=== PATIENT | female | born 1955 | race African-American/Black ===

== ENCOUNTER 2018-06-23 08:51 | Outpatient (CLI) | payer OTHER ==
--- NOTE | 2018-06-23 10:37 | MMO ---
BILATERAL SCREENING MAMMOGRAM: Date: 06/23/18 HISTORY: 62-year-old female. Routine screening mammography. COMPARISON: None. Baseline mammogram. TECHNIQUE: CC and MLO views of both breasts are submitted for interpretation. This patient's mammogram was reviewed with the assistance of computer-aided detection. FINDINGS: The breasts are composed of scattered fibroglandular tissue. Bilaterally, no suspicious dominant mass , architectural distortion, or suspicious calcifications. Bilateral benign-appearing calcifications a re identified. IMPRESSION: BIRADS 2: Benign Finding(s) RECOMMENDATION: Annual mammogram. POS: [facility]
== END 2018-06-23 08:52 | disposition home or self-care (01) ==
LOC: SCSMAMMO 08:51
PROVIDERS: ATTEND Nurse Practitioner Family
DX: Z12.31 Encounter for screening mammogram for malignant neoplasm of breast (principal)
CPT/HCPCS: 77067

== ENCOUNTER 2019-06-10 01:26 | Inpatient (IN) | payer SELFPAY ==
[2019-06-10] MEDS ORDERED: Magnesium 2 GM/50 ML BAG (IN WATER) ONE (02:27)
[2019-06-10] MEDS ORDERED: methylPREDNISolone Sod Succ/PF 125 MG/2 ML VIAL ONE (02:27)
[2019-06-10] MEDS ORDERED: Morphine 4 MG/ML VIAL ONE (03:08)
[2019-06-10] MEDS ORDERED: Enoxaparin Sodium 100 MG/ML SYRINGE ONE (03:08)
[2019-06-10] MEDS ORDERED: Enoxaparin Sodium 60 MG/0.6 ML SYRINGE ONE (03:10)
[2019-06-10] MEDS ORDERED: Acetaminophen 325 MG TAB PO PRN (03:16)
[2019-06-10] MEDS ORDERED: Ondansetron PF 4 MG/2 ML Vial IVP PRN (03:16)
[2019-06-10 03:41] LABS: Hemoglobin 12.1 g/dL (12.0-16.0); Mean Corpuscular HGB CONC 33.2 g/dL (32.0-36.0); Mean Corpuscular Volume 90.5 fL (78.0-98.0); Mean Platelet Volume 7.3 fL (7.4-10.4); Platelet Count 234 thou/uL (130-400); RBC Distribution Width 14.5 % (11.5-14.5); Red Blood Cell (RBC) Count 4.04 mill/uL (4.20-5.40); White Blood Cell (WBC) Count 17.1 thou/uL (4.8-10.8)
[2019-06-10 03:57] LABS: Lymphocytes 8 % (21-51); MDiff Complete? YES; Monocytes 4 % (0-10); Neutrophil 88 % (42-75); Platelet Morphology Comment Appears Adequate; RBC Morphology Normal
--- NOTE | 2019-06-10 03:58 | PDOC.EVN ---
Event Note - Event Note Event Note: H&P dictated [id number]
--- NOTE | 2019-06-10 06:45 | HP ---
CHIEF COMPLAINT: Shortness of breath and chest pain. HISTORY OF PRESENT ILLNESS: Ms. Diaz is a 63-year-old female with past medical history of hypertension, asthma, diabetes, and deep venous thrombosis, presented to [facility] Emergency Room in [place] with shortness of breath and chest pain that started yesterday evening. The patient was in respiratory distress, hypoxic, was given breathing treatments without any improvement. Requested to transfer the patient to [facility] because the CAT scan was done, and not able to be done at [place]. When the patient arrived, the patient was seen to be in respiratory distress, placed on nonrebreather mask and CTA of the chest was done, which was nondiagnostic, but cannot rule out segmental or subsegmental pulmonary emboli. Given the patient's presentation and also elevated d-dimer, and normal chest x-ray, and unexplained shortness of breath, dyspnea, and hypoxia, the patient was given Lovenox in the emergency room 1 mg/kg x1. The patient is going to be admitted to the hospital for further management. The patient also had a low grade temperature of 99.4. PAST MEDICAL HISTORY: 1. Deep venous thrombosis in . 2. Hypertension. 3. Asthma. 4. Diabetes. PAST SURGICAL HISTORY: . HOME MEDICATIONS: The patient is on; 1. Albuterol. 2. Lisinopril/hydrochlorothiazide. ALLERGIES: NO KNOWN DRUG ALLERGIES. SOCIAL HISTORY: No alcohol drinking, or drug abuse. The patient has a history of smoking, but in the past. FAMILY HISTORY: Reviewed and noncontributory. REVIEW OF SYSTEMS: Review of 14-systems negative except what was mentioned in the history of present illness. PHYSICAL EXAMINATION: GENERAL: The patient is awake, in respiratory distress, morbidly obese. VITAL SIGNS: Blood pressure is 147/90, heart rate is 115, respiratory rate is 24, pulse oximetry is 99% on nonrebreather. HEAD AND NECK: Head normocephalic and atraumatic. Neck is supple. CHEST: No wheezing. No crackles. HEART: S1 and S2 regular, tachycardic. ABDOMEN: Obese, soft, nondistended. Bowel sounds present. NEUROLOGIC: The patient is awake, alert, oriented x3, no focal deficits. PSYCHIATRIC: Normal mood. EXTREMITIES: Swelling/edema of both lower extremities. LABORATORY DATA: Labs reviewed. D-dimer elevated at 1.22. CTA of the chest as mentioned above in the history of present illness. ASSESSMENT: 1. Acute hypoxic respiratory failure. 2. Suspected pulmonary embolism. 3. Asthma? with exacerbation. 4. Morbid obesity. 5. Hypertension. 6. Diabetes. 7. History of deep venous thrombosis. PLAN: 1. Admit to IMCU. 2. Oxygen, to keep saturation more than 92%. 3. The patient started on anticoagulation because of the high clinical suspicion for PE. 4. We will get venous doppler to rule out DVT. 5. We will get 2-D echo to rule out right ventricular dysfunction. 6. We will continue with bronchodilators as needed. 7. Reconcile home medications. 8. Deep venous thrombosis prophylaxis. The patient already started on Lovenox. 9. Reconcile home medications. EXPECTED LENGTH OF STAY: Two midnights or more. Job ID: [id number]
--- NOTE | 2019-06-10 07:38 | CT ---
PRELIMINARY REPORT/[facility]/AFTER HOURS PROCEDURE EXAM: CT Angiography Chest With Contrast EXAM DATE/TIME: 06/10/2019 2:01 AM CLINICAL HISTORY: 63 years old, female; Dyspnea; Patient HX: 63 yo female who presents to the er as a transfer from [facility] C/O SOB. She reports it started at 10 am Friday morning and worsened. She states she has had a hard time catching her breath since then TECHNIQUE: Imaging protocol: Computed tomographic angiography of the chest with intravenous contrast. 3D rendering: MIP reconstructed images were created and reviewed. COMPARISON: No relevant prior studies available. FINDINGS: Limitations: Motion artifact limits this study. Pulmonary arteries: Borderline adequate contrast enhancement of the pulmonary arteries. Aorta: No evidence of thoracic aortic dissection. Mild up to 3.7 cm ectasia/aneurysm of ascending thoracic aorta. Lungs: No evidence endobronchial lesion. Mild lingular, right middle and bilateral lower lobe air space opacity-atelectasis/scarring. Pleural space: No evidence of pneumothorax. Heart: Heart appears within normal limits, no pericardial effusion. No evidence of filling defects in the cardiac chambers. Lymph nodes: Few subcentimeter mediastinal lymph nodes. Bones/joints: Musculoskeletal structures appear intact. Multi-level degenerative changes involve the thoracic spine. Soft tissues: Unremarkable. IMPRESSION: 1. Motion artifact limits this study. 2. No evidence of pulmonary embolism. 3. No evidence of thoracic aortic dissection. 4. Mild up to 3.7 cm ectasia/aneurysm of ascending thoracic aorta. 5. Mild lingular, right middle and bilateral lower lobe air space opacity-atelectasis/scarring. Thank you for allowing us to participate in the care of your patient. Dictated and Authenticated by: Elva Gallo MD 06/10/2019 2:40 AM Central Time ([place] & [place]) FINAL REPORT CTA ANGIO CHEST WITH AND WITHOUT CONTRAST: HISTORY: Dyspnea. COMPARISON: None. TECHNIQUE: CT angiogram chest performed after the intravenous administration of contrast. 3D rendering provided . FINDINGS: The pulmonary trunk is dilated, measuring 33 mm. Poor distal pulmonary arterial opacification due to delayed phase of contrast. Heart size is enlarged. Mild atelectasis in the lung bases. No acute osseous abnormality. IMPRESSION: The findings and impression are concordant with the preliminary report. CODE QA Transcribed Date/Time: 06/10/2019 8:16 AM
--- NOTE | 2019-06-10 08:44 | ULT ---
PRELIMINARY REPORT/[facility]/EMERGENCY AFTER HOURS PROCEDURE: EXAM: US Duplex Bilateral Lower Extremity Veins EXAM DATE/TIME: 06/10/2019 4:22 AM CLINICAL HISTORY: 63 years old, female; Pain; Edema, localized; Lower extremity, bilateral; Leg, upper and leg, lower TECHNIQUE: Imaging protocol: Real-time duplex ultrasound of the Bilateral Lower Extremities with 2-D jackson scale, color Doppler flow and spectral waveform analysis with image documentation. Complete exam focused on the bilateral lower extremity veins. COMPARISON: No relevant prior studies available. FINDINGS: Right deep veins: The common femoral, femoral, proximal profunda femoral and popliteal veins are santiago nt without thrombus. Normal Doppler waveforms. Normal compressibility and/or augmentation response. Right superficial veins: Saphenofemoral junction is patent without thrombus. Left deep veins: The common femoral, femoral, proximal profunda femoral and popliteal veins are paten t without thrombus. Normal Doppler waveforms. Normal compressibility and/or augmentation response. Left superficial veins: Saphenofemoral junction is patent without thrombus. Soft tissues: Unremarkable. IMPRESSION: No acute findings. No evidence of deep vein thrombosis. Thank you for allowing us to participate in the care of your patient. Dictated and Authenticated by: Jenn Mendoza MD 06/10/2019 5:40 AM Central Time ([place] & [place]) FINAL REPORT BILATERAL LOWER EXTREMITY VENOUS DUPLEX EXAM: HISTORY: Localized edema and bilateral leg pain. FINDINGS: Real-time color Doppler evaluation of the right and left lower extremities was performed from groin t o calf. The exam was technically difficult due to body habitus and edema changes within the soft tis sues. Evaluation included the common femoral, superficial and profunda femoral, saphenous, popliteal , and posterior tibial veins. This shows patent deep venous systems bilaterally with normal compress ibility and augmentation. IMPRESSION: 1. No evidence of deep vein thrombosis of either lower extremity. 2. This report is in agreement with the temporary report issued by [facility]. POS: [facility]
[2019-06-10] MEDS ORDERED: Enoxaparin Sodium 60 MG/0.6 ML SYRINGE SC SCH (09:00)
[2019-06-10] MEDS ORDERED: Enoxaparin Sodium 80 MG/0.8 ML SYRINGE SC SCH (09:00)
[2019-06-10 09:54] LABS: Anion Gap 12 mmol/L (10-20); BUN (Urea Nitrogen) 15 mg/dL (9.8-20.1); Calc. Creatinine Clearance 0 mL/min (70-130); Calcium 9.4 mg/dL (7.8-10.44); Carbon Dioxide 29 mmol/L (23-31); Chloride 104 mmol/L (98-107); Estimated GFR-MDRD 65; Glucose 199 mg/dL (80-115); Potassium 4.8 mmol/L (3.5-5.1); Sodium 140 mmol/L (136-145)
[2019-06-10 10:01] LABS: Troponin I Less than 0.010 ng/mL (< 0.028)
[2019-06-10] MEDS ORDERED: ISOVUE-370 76%-LOCM 1 ML ONE (11:29)
[2019-06-10] MEDS: hydrALAZINE 20 MG/ML VIAL SLOW IVP PRN ×2 (13:11→23:44)
[2019-06-10 13:14] VITALS: BMI 52.8
--- NOTE | 2019-06-10 20:38 | PDOC.HOSPP ---
- Subjective Encounter Date: 06/10/19 Encounter Time: 13:00 Subjective: pt up in bed c/o sob. she is not on oxygen at home. currently she is on 6L - Objective Vital Signs & Weight: Vital Signs (12 hours) Temp Pulse Resp BP Pulse Ox 06/10/19 20:00 98.1 F 105 H 20 179/90 H 97 06/10/19 16:16 98.6 F 126 H 25 H 147/91 H 94 L 06/10/19 13:45 170/90 H 06/10/19 12:43 98.8 F 57 L 27 H 230/118 H 96 Weight Weight 298 lb 1.6 oz I&O: 06/09/19 06/10/19 06/11/19 06:59 06:59 06:59 Intake Total 1160 Output Total 350 Balance 810 Result Diagrams: 06/10/19 03:32 06/10/19 09:27 Additional Labs: Accuchecks 06/10/19 13:07 POC Glucose 231 H Hospitalist ROS - Review of Systems Respiratory: reports: shortness of breath Cardiovascular: denies: chest pain, palpitations, orthopnea, paroxysmal noc. dyspnea, edema, light headedness, other Gastrointestinal: denies: nausea, vomiting, abdominal pain, diarrhea, constipation, melena, hematochezia, other - Medication Medications: Active Medications Generic Name Dose Route Start Last Admin Trade Name Freq PRN Reason Stop Dose Admin Hydralazine HCl 5 mg 06/10/19 13:06 06/10/19 13:11 Apresoline SLOW IVP 5 mg Q6H PRN Administration .SBP >180 - Exam Neck: negative: supple, symmetric, no JVD, no thyromegaly, no lymphadenopathy, no carotid bruit, JVD Heart: negative: RRR, no murmur, no gallops, no rubs, normal peripheral pulses, irregular, diminshed peripheral pulses, murmur present, II/IV, III/IV Respiratory: negative: CTAB, no wheezes, no rales, no ronchi, normal chest expansion, no tachypnea, normal percussion, rales, rhonchi, tachypneic, wheezes Hosp A/P (1) Acute respiratory failure with hypoxia Code(s): J96.01 - ACUTE RESPIRATORY FAILURE WITH HYPOXIA Status: Acute (2) Asthma Code(s): J45.909 - UNSPECIFIED ASTHMA, UNCOMPLICATED Status: Acute (3) HTN (hypertension) Code(s): I10 - ESSENTIAL (PRIMARY) HYPERTENSION Status: Acute (4) Obesity Code(s): E66.9 - OBESITY, UNSPECIFIED Status: Acute - Plan pt states that her grandchildren have been ill recently. will check RVP. pulmonary has been consulted. cta not conclusive if pt has PE. lower ext Doppler negative. she is on AC. will start her on bp meds and and neb tx.
[2019-06-10] MEDS ORDERED: Dextrose 5% in Water 1,000 ML IV PRN (20:43)
[2019-06-10] MEDS ORDERED: HumaLOG 300 UNITS/3 ML VIAL SC PRN (20:43)
[2019-06-10] MEDS ORDERED: Dextrose 50% Abboject 50 ML SYRINGE SLOW IVP PRN (20:43)
[2019-06-10] MEDS: Lisinopril/Hydrochlorothiazide 20/25 mg Tablet PO SCH (20:47)
[2019-06-10] MEDS: Enoxaparin Sodium 100 MG/ML SYRINGE SC SCH (20:47)
[2019-06-10] MEDS: Enoxaparin Sodium 30 MG/0.3 ML SYRINGE SC SCH (20:49)
[2019-06-11 04:23] LABS: #Monocytes 1.1 thou/uL (0.11-0.59); #Neutrophils 14.3 thou/uL (1.40-6.50); %Basophils 0.2 % (0.0-1.0); %Eosinophils 0.1 % (0.0-10.0); %Lymphocytes 11.6 % (21.0-51.0); %Monocytes 6.3 % (0.0-10.0); %Neutrophils 81.9 % (42.0-75.0); Hemoglobin 12.4 g/dL (12.0-16.0); Mean Corpuscular HGB CONC 33.1 g/dL (32.0-36.0); Mean Corpuscular Hemoglobin 30.3 pg (27.0-31.0); Mean Corpuscular Volume 91.5 fL (78.0-98.0); Mean Platelet Volume 7.7 fL (7.4-10.4); Platelet Count 238 thou/uL (130-400); RBC Distribution Width 14.5 % (11.5-14.5); Red Blood Cell (RBC) Count 4.09 mill/uL (4.20-5.40); White Blood Cell (WBC) Count 17.4 thou/uL (4.8-10.8)
[2019-06-11 04:43] LABS: Anion Gap 9 mmol/L (10-20); BUN (Urea Nitrogen) 16 mg/dL (9.8-20.1); Calc. Creatinine Clearance 148 mL/min (70-130); Calcium 9.4 mg/dL (7.8-10.44); Carbon Dioxide 33 mmol/L (23-31); Chloride 100 mmol/L (98-107); Estimated GFR-MDRD 85; Glucose 107 mg/dL (80-115); Potassium 4.2 mmol/L (3.5-5.1); Sodium 138 mmol/L (136-145)
[2019-06-11] MEDS: Lisinopril/Hydrochlorothiazide 20/25 mg Tablet PO SCH ×2 (08:39→20:46)
[2019-06-11] MEDS: Enoxaparin Sodium 30 MG/0.3 ML SYRINGE SC SCH ×2 (08:39→20:46)
[2019-06-11] MEDS: Enoxaparin Sodium 100 MG/ML SYRINGE SC SCH ×2 (08:39→20:46)
--- NOTE | 2019-06-11 16:04 | PDOC.HOSPP ---
- Subjective Encounter Date: 06/11/19 Encounter Time: 10:30 Subjective: pt up in bed feels good today. - Objective Vital Signs & Weight: Vital Signs (12 hours) Temp Pulse Resp BP Pulse Ox 06/11/19 15:45 98.9 F 85 19 158/90 H 95 06/11/19 11:07 98.0 F 87 21 H 140/88 98 06/11/19 08:39 99 06/11/19 07:29 98.0 F 93 17 140/95 H 99 Weight Weight 298 lb 1.6 oz I&O: 06/10/19 06/11/19 06/12/19 06:59 06:59 06:59 Intake Total 1380 Output Total 1550 Balance -170 Result Diagrams: 06/11/19 03:41 06/11/19 03:41 Additional Labs: Accuchecks 06/11/19 06/11/19 06/10/19 11:11 05:38 21:04 POC Glucose 151 H 116 H 145 H Hospitalist ROS - Review of Systems Respiratory: denies: cough, dry, shortness of breath, hemoptysis, SOB with excertion, pleuritic pain, sputum, wheezing, other Cardiovascular: denies: chest pain, palpitations, orthopnea, paroxysmal noc. dyspnea, edema, light headedness, other Gastrointestinal: denies: nausea, vomiting, abdominal pain, diarrhea, constipation, melena, hematochezia, other - Medication Medications: Active Medications Generic Name Dose Route Start Last Admin Trade Name Freq PRN Reason Stop Dose Admin Enoxaparin Sodium 100 mg 06/10/19 21:00 06/11/19 08:39 Lovenox SC 100 mg 0900,2100 JOSE Administration Enoxaparin Sodium 30 mg 06/10/19 21:00 06/11/19 08:39 Lovenox SC 30 mg 0900,2100 JOSE Administration Lisinopril/HCTZ 1 tab 06/10/19 21:00 06/11/19 08:39 Prinizide 20-25 PO 1 tab BID JOSE Administration Hydralazine HCl 5 mg 06/10/19 13:06 06/10/19 23:44 Apresoline SLOW IVP 5 mg Q6H PRN Administration .SBP >180 Levofloxacin 750 mg/ Device 150 mls @ 100 mls/hr 06/10/19 21:00 06/10/19 21: 00 IVPB 150 mls Q24HR JOSE Administration Sodium Chloride 10 ml 06/10/19 21:00 06/11/19 08:39 Flush - Normal Saline IVF 10 ml Q12HR JOSE Administration - Exam Neck: negative: supple, symmetric, no JVD, no thyromegaly, no lymphadenopathy, no carotid bruit, JVD Heart: negative: RRR, no murmur, no gallops, no rubs, normal peripheral pulses, irregular, diminshed peripheral pulses, murmur present, II/IV, III/IV Respiratory: negative: CTAB, no wheezes, no rales, no ronchi, normal chest expansion, no tachypnea, normal percussion, rales, rhonchi, tachypneic, wheezes Hosp A/P (1) Acute respiratory failure with hypoxia Code(s): J96.01 - ACUTE RESPIRATORY FAILURE WITH HYPOXIA Status: Acute (2) Asthma Code(s): J45.909 - UNSPECIFIED ASTHMA, UNCOMPLICATED Status: Acute (3) HTN (hypertension) Code(s): I10 - ESSENTIAL (PRIMARY) HYPERTENSION Status: Acute (4) Obesity Code(s): E66.9 - OBESITY, UNSPECIFIED Status: Acute - Plan pt states that her grandchildren have been ill recently. will check RVP. pulmonary has been consulted. cta not conclusive if pt has PE. lower ext Doppler negative. she is on AC. will start her on bp meds and and neb tx. 06/11 will wean her oxygen down. will continue her lovonox for now. i will wait for pulmonary's recommendation. will continue abx. RVP negative. Her echo indicates ef of 60% pt ran out of her bp meds.
[2019-06-11] MEDS ORDERED: Furosemide 20 MG/2 ML VIAL SLOW IVP SCH (18:15)
[2019-06-12] MEDS: hydrALAZINE 20 MG/ML VIAL SLOW IVP PRN (00:22)
--- NOTE | 2019-06-12 01:00 | CON ---
DATE OF CONSULTATION: 06/11/2019 SERVICE: Pulmonary Medicine. INTERVAL HISTORY: The patient is doing outstanding from respiratory standpoint. I was consulted because of hypoxic failure. The patient presented to the hospital with an abrupt onset of a severe pleuritic chest discomfort, cough, and increasing shortness of breath. She presented immediately to the emergency department. A CTA of the chest was negative for a PE, but did demonstrate an infiltrate. She was appropriately initiated on CAP coverage. Since she has been in the hospital, she has felt much improved. She denies any current fevers, chills, sweats, nausea or vomiting. She is de león positive for sleep apnea symptoms. Otherwise, there has been no interval change to her condition. She actually feels close to baseline, and is almost ready to go home based on what she suggests to me. PAST MEDICAL HISTORY: 1. History of DVT during . 2. Hypertension. 3. Asthma. 4. Type 2 diabetes mellitus. 5. Morbid obesity. PAST SURGICAL HISTORY: section. SOCIAL HISTORY: Negative for alcohol, tobacco, or illicit drug use. She has no exposure to chemicals, dust, asbestos, or tuberculosis. FAMILY HISTORY: Noncontributory. ALLERGIES: NO KNOWN DRUG ALLERGIES. MEDICATIONS: List of her inpatient medications was reviewed. No specific updates were made at this time. REVIEW OF SYSTEMS: General, head, ears, eyes, nose, throat, cardiovascular, respiratory, GI, , musculoskeletal, neurologic, and skin are negative except as mentioned in HPI. PHYSICAL EXAMINATION: VITAL SIGNS: Afebrile, pulse 87, blood pressure 140/88, respirations 21, saturation 98% on 4 L nasal cannula. GENERAL: The patient is awake and alert, in no apparent distress. LUNGS: Very good air entry. There is some minimal dependent crackles on the right, but none on the left. There is no prolonged expiratory phase or wheezing that I can appreciate. HEART: Normal rate. Regular. ABDOMEN: Soft, nontender, nondistended. Bowel sounds are positive. MUSCULOSKELETAL: No cyanosis or clubbing. 1+ pitting is present in bilateral lower extremities. NEUROLOGIC: Grossly nonfocal. LABORATORY DATA: WBC 17.4 and stable, hemoglobin 12.4, platelets 238,000. Neutrophil count was originally 88%, which is improving. Basic metabolic profile is completely unremarkable. BNP 55.6. Respiratory virus panel is negative. IMAGING: CTA of the chest demonstrates no evidence of PE. There is significant motion artifact which precludes evaluation of the subsegmental arteries. Scattered infiltrates are present throughout the right lung. Some of these extend to the pleura. They are quite small. ASSESSMENT: 1. Acute hypoxic respiratory failure. 2. Community-acquired pneumonia. 3. Acute on chronic diastolic heart failure. 4. Obstructive sleep apnea, strongly suspected. DISCUSSION AND PLAN: I will give her a single dose of Lasix. Antibiotic choice is excellent. Since she has cleared her inflammatory profile, she can be converted over to a p.o. medication. She needs a 5-to 7-day course. We will wean oxygen away as tolerated. Once the patient feels up for it, she will be ready for discharge from the hospital. I would like for her to follow up with me in the outpatient setting, so that I can clarify her underlying lung disease, get her on appropriate medications if indicated, and send her for a polysomnogram. 70 minutes have been devoted to this patient in various activities. I personally reviewed all imaging studies and laboratory data noted within this document. For fifty percent of this time, I was interacting with the patient at the bedside or coordinating care with the care team. For the remainder of the time I was immediately available to the patient in the hospital unit. Job ID: [id number] MTDD
[2019-06-12] MEDS: Lisinopril/Hydrochlorothiazide 20/25 mg Tablet PO SCH ×2 (09:52→21:26)
[2019-06-12] MEDS: Enoxaparin Sodium 30 MG/0.3 ML SYRINGE SC SCH (11:07)
[2019-06-12] MEDS: Enoxaparin Sodium 100 MG/ML SYRINGE SC SCH (11:07)
--- NOTE | 2019-06-12 12:16 | RAD ---
PORTABLE CHEST: Date: 06/12/19 HISTORY: Shortness of breath. Exam performed to correlate with VQ study. There are no comparison films. FINDINGS: Lungs appear clear. No infiltrate. Heart size upper normal. Vasculature within normal range. IMPRESSION: No acute lung process apparent. POS: OFF
--- NOTE | 2019-06-12 14:32 | NM ---
VENTILATION PERFUSION LUNG SCAN: Date: 06/12/19 HISTORY: shortness of breath TECHNIQUE/FINDINGS: The ventilation scan was unable to be performed. The patient was unable to inhale the Xenon and was u nable to hold breath with the Xenon inhalation. Therefore, ventilation images were not obtained. Perfusion images were obtained after injecting 5.7 mCi of technetium labeled MAA IV. The lungs were i tarun in eight projections. Correlation made to portable chest film of 06/12/19 which shows no focal infiltrate. There is heterogeneous perfusion bilaterally. A focal defect is seen posterior right upper lobe on la teral view. No other suspicious perfusion defect identified. IMPRESSION: Suboptimal study without ventilation exam. A small wedge-shaped perfusion defect seen posterior right upper lobe on lateral and oblique view. Probability is estimated at low to intermediate based on this limited study. POS: OFF
--- NOTE | 2019-06-12 20:17 | PRG ---
DATE OF SERVICE: 06/12/2019 SERVICE: Pulmonary Medicine. INTERVAL HISTORY: The patient is about 50% improved. She made a significant improvement overnight. She denies any current fevers or chills. Her cough is much better. Otherwise, she states she is happy with the progress that she has made. She has still got winded when she got to the bathroom with nuclear medical technologist. PHYSICAL EXAMINATION: VITAL SIGNS: Afebrile, currently. T-max 99.4, pulse 103, blood pressure 159/90 , respirations 20, and saturation 92%, currently on room air. GENERAL: The patient is awake and alert, in no apparent distress. LUNGS: There is a severely reduced air entry. No prolonged expiratory phase. Wheezing is appreciated. HEART: Normal rate. Regular. ABDOMEN: Soft, nontender, and nondistended. Bowel sounds are positive. MUSCULOSKELETAL: No cyanosis or clubbing. There is no pitting in bilateral lower extremities. NEUROLOGIC: Grossly nonfocal. IMAGING: Chest x-ray demonstrates no acute cardiopulmonary abnormality. V/Q scan was essentially nondiagnostic. They could not do the ventilation portion because she could not hold her breath for the xenon. That being said, overall the estimated to be low to intermediate probability study. ASSESSMENT: 1. Acute hypoxic respiratory failure, resolved. 2. Acute on chronic diastolic heart failure, returned to euvolemia. 3. Community-acquired pneumonia, possible. 4. Obstructive sleep apnea, strongly suspected. DISCUSSION AND PLAN: We will continue her steroids, antibiotics, and nebulized medications. We will involve Physical Therapy, in the walking program. I had a conversation about the patient about having two suboptimal, nondiagnostic studies looking for pulmonary embolism. She had a minimally elevated D-dimer. She had a CTA of the chest, which suggested there was no PE, though was suboptimal-timed bolus. She also had a V/Q scan, which could not be completed in its entirety, which was the low to moderate probability study. I talked about risks and benefits of pursuing anticoagulation versus not. Ultimately, she has decided not to pursue anticoagulation. I have counseled her to come back to the hospital immediately if she has a sudden onset of increasing shortness of breath or sharp chest discomfort. At this point, all medications will be converted over to p.o. When she feels up for it, she will be stable for discharge from the hospital. If she remains in-house, I will continue to follow. I would like to see her in clinic in a month or 2 in the outpatient setting. So, I can clarify her underlying lung disease, get her on appropriate medications if indicated and send her for sleep evaluation. Job ID: [id number] MALINI
[2019-06-12] MEDS ORDERED: Amlodipine 5 MG TAB PO SCH (21:00)
[2019-06-12] MEDS ORDERED: HumaLOG 300 UNITS/3 ML VIAL SC PRN (21:50)
[2019-06-13 05:27] LABS: #Eosinphils 0.1 thou/uL (0.0-0.7); #Monocytes 0.8 thou/uL (0.11-0.59); #Neutrophils 5.5 thou/uL (1.40-6.50); %Basophils 0.3 % (0.0-1.0); %Eosinophils 0.7 % (0.0-10.0); %Lymphocytes 32.3 % (21.0-51.0); %Neutrophils 58.7 % (42.0-75.0); Hemoglobin 12.9 g/dL (12.0-16.0); Mean Corpuscular HGB CONC 32.8 g/dL (32.0-36.0); Mean Corpuscular Hemoglobin 29.9 pg (27.0-31.0); Mean Corpuscular Volume 91.3 fL (78.0-98.0); Mean Platelet Volume 7.7 fL (7.4-10.4); Platelet Count 259 thou/uL (130-400); RBC Distribution Width 14.4 % (11.5-14.5); White Blood Cell (WBC) Count 9.4 thou/uL (4.8-10.8)
[2019-06-13 05:42] LABS: Anion Gap 11 mmol/L (10-20); BUN (Urea Nitrogen) 25 mg/dL (9.8-20.1); Calc. Creatinine Clearance 111 mL/min (70-130); Calcium 9.5 mg/dL (7.8-10.44); Carbon Dioxide 33 mmol/L (23-31); Chloride 97 mmol/L (98-107); Estimated GFR-MDRD 61; Glucose 108 mg/dL (80-115); Magnesium 2.1 mg/dL (1.6-2.6); Potassium 3.5 mmol/L (3.5-5.1); Sodium 137 mmol/L (136-145)
--- NOTE | 2019-06-13 08:26 | PDOC.HOSPP ---
- Subjective Encounter Date: 06/12/19 Encounter Time: 10:00 Subjective: pt up in bed feels well - Objective Vital Signs & Weight: Vital Signs (12 hours) Temp Pulse Resp BP BP Pulse Ox 06/13/19 04:00 97.9 F 77 16 136/78 97 06/12/19 23:54 110 H 131/79 06/12/19 21:26 103 H 150/74 H 06/12/19 21:25 103 H 150/75 H Weight Weight 298 lb 1.6 oz I&O: 06/12/19 06/13/19 06/14/19 06:59 06:59 06:59 Intake Total 2440 2250 Output Total 2950 2200 Balance -510 50 Result Diagrams: 06/13/19 04:56 06/13/19 04:56 Additional Labs: Accuchecks 06/13/19 06/12/19 06/12/19 05:35 20:59 16:25 POC Glucose 116 H 190 H 142 H Hospitalist ROS - Review of Systems Respiratory: denies: cough, dry, shortness of breath, hemoptysis, SOB with excertion, pleuritic pain, sputum, wheezing, other Cardiovascular: denies: chest pain, palpitations, orthopnea, paroxysmal noc. dyspnea, edema, light headedness, other Gastrointestinal: denies: nausea, vomiting, abdominal pain, diarrhea, constipation, melena, hematochezia, other - Medication Medications: Active Medications Generic Name Dose Route Start Last Admin Trade Name Freq PRN Reason Stop Dose Admin Amlodipine Besylate 5 mg 06/12/19 21:00 06/12/19 21:25 Norvasc PO 5 mg HS JOSE Administration Lisinopril/HCTZ 1 tab 06/10/19 21:00 06/12/19 21:26 Prinizide 20-25 PO 1 tab BID JOSE Administration Hydralazine HCl 5 mg 06/10/19 13:06 06/12/19 00:22 Apresoline SLOW IVP 5 mg Q6H PRN Administration .SBP >180 Insulin Human Lispro 0 units 06/10/19 20:43 06/11/19 22:15 Humalog SC 2 units .MILD SLIDING SCALE PRN Administration Mild Correctional Scale Levofloxacin 750 mg 06/12/19 21:00 06/12/19 21:26 Levaquin PO 06/16/19 21:01 750 mg 2100 JOSE Administration Sodium Chloride 10 ml 06/10/19 21:00 06/12/19 21:26 Flush - Normal Saline IVF 10 ml Q12HR JOSE Administration - Exam Neck: negative: supple, symmetric, no JVD, no thyromegaly, no lymphadenopathy, no carotid bruit, JVD Heart: negative: RRR, no murmur, no gallops, no rubs, normal peripheral pulses, irregular, diminshed peripheral pulses, murmur present, II/IV, III/IV Respiratory: negative: CTAB, no wheezes, no rales, no ronchi, normal chest expansion, no tachypnea, normal percussion, rales, rhonchi, tachypneic, wheezes Hosp A/P (1) Acute respiratory failure with hypoxia Code(s): J96.01 - ACUTE RESPIRATORY FAILURE WITH HYPOXIA Status: Acute (2) Asthma Code(s): J45.909 - UNSPECIFIED ASTHMA, UNCOMPLICATED Status: Acute (3) HTN (hypertension) Code(s): I10 - ESSENTIAL (PRIMARY) HYPERTENSION Status: Acute (4) Obesity Code(s): E66.9 - OBESITY, UNSPECIFIED Status: Acute - Plan pt states that her grandchildren have been ill recently. will check RVP. pulmonary has been consulted. cta not conclusive if pt has PE. lower ext Doppler negative. she is on AC. will start her on bp meds and and neb tx. 06/11 will wean her oxygen down. will continue her lovonox for now. i will wait for pulmonary's recommendation. will continue abx. RVP negative. Her echo indicates ef of 60% pt ran out of her bp meds. 06/12 spoke with pulmonary no need for AC and this was discussed with pt. pt feels well and is off oxygen. she will follow with pulmonary. she will be discharge in am
[2019-06-13] MEDS: Lisinopril/Hydrochlorothiazide 20/25 mg Tablet PO SCH (09:49)
[2019-06-13 10:16] VITALS: TEMP 98.2
[2019-06-13 12:23] VITALS: BP 187/90
--- NOTE | 2019-06-13 16:36 | DIS ---
DATE OF ADMISSION: 06/10/2019 DATE OF DISCHARGE: 06/13/2019 DISCHARGE DIAGNOSES: 1. Shortness of breath. 2. Acute hypoxia. 3. Obesity. 4. Hypertension. 5. History of deep venous thrombosis. HOSPITAL COURSE: The patient is a 63-year-old female, who presented to the hospital initially with complaints of shortness of breath. Initially, she was on a non-rebreather, which was downgraded to 6 L nasal cannula. She underwent a CTA, which indicated no PE, however, the bolus time was little slightly delayed. At this time, Pulmonology was consulted. She also had a lower extremity venogram, which was normal. She also had an echocardiogram, which indicated an EF of 60% to 65%, with mild concentric left ventricular hypertrophy. The patient stated that she has ran out of her blood pressure medications about 2 weeks ago. We then ordered a V/Q scan, which was a limited study due to suboptimal because only the perfusion was done and the ventilation part was not done. I did speak with Pulmonology, who did not think this was a pulmonary embolism and the patient was on room air. She was able to ambulate without any difficulties. She was given a dose of diuretics, which helped her. I have started her back on her blood pressure medication and I have added Levaquin for a total of 6 to 7 days, aspirin 81 mg daily, Levaquin 750 mg for 6 days, lisinopril/hydrochlorothiazide one p.o. b.i.d., Florastor 250 mg daily, and Norvasc 10 mg daily. I have asked the patient to follow up with her primary and also with Pulmonology in about 2 weeks for possible sleep study. The patient voices understanding that she needs to follow up. PHYSICAL EXAMINATION: VITAL SIGNS: Temperature of 98.2, pulse 89, respiratory rate 18, oxygen saturations 96% on room air, and blood pressure 134/90. GENERAL: She is awake, alert, and oriented x3. Does not appear in any distress. CARDIOVASCULAR: S1 and S2 present. No murmurs, rubs, or gallops. ABDOMEN: Soft and nontender. Bowel sounds are present x2. Again, she will be discharged. She will follow up with the primary and we have walked her multiple times and she has not had her saturations below 88%. Job ID: [id number]
== END 2019-06-13 13:05 | disposition home or self-care (01) | DRG 189 ==
LOC: ERS 01:26 → ERHOLD 03:07 → 2NO 12:57
PROVIDERS: ADMIT Internal Medicine; ATTEND Internal Medicine
DX: J96.01 Acute respiratory failure with hypoxia (principal); I50.33 Acute on chronic diastolic (congestive) heart failure; J18.9 Pneumonia, unspecified organism; Z68.43 Body mass index [BMI] 50.0-59.9, adult; E11.9 Type 2 diabetes mellitus without complications; E66.01 Morbid (severe) obesity due to excess calories; I11.0 Hypertensive heart disease with heart failure; G47.33 Obstructive sleep apnea (adult) (pediatric); J45.909 Unspecified asthma, uncomplicated; Z86.718 Personal history of other venous thrombosis and embolism
CPT/HCPCS: 36415; 36416; 71045; 71275; 78582; 80048; 83735; 83880; 84484; 85007; 85025; 85027; 85379; 87633; 87798; 93306; 93970; 96372; 96374; 96375; A9540; A9558; J0360; J1650; J1940; J1956; J2270; J2930; J3475; Q9966